=== PATIENT | female | born 1945 | race Caucasian/White ===

== ENCOUNTER 2017-08-11 22:47 | Inpatient (IN) | payer MEDICARE, MEDICAID ==
[~2017-08-11] VITALS: Ht 152.4 cm; Wt 69.1 kg
[~2017-08-11 22:47] MED LIST: ALEN70TA48 PO; ASPI-611 PO; BENZ-16 PO; DEXL60CA3 PO; DOCU-28 PO; LEVO25TA2 PO; LIDO700A5 TP; MULT1TAB74 PO; ONDA4TAB6 PO; PHEN51CR RC; POTA99TA6 PO; RANI300C PO; SENN-25 PO; THIO10TA PO; TRAM50TA2 PO
[2017-08-12] VITALS (13 sets, daily range): BP systolic 105–131; BP diastolic 40–75
[2017-08-12] MEDS ORDERED: fentaNYL/PF 50MCG/1 ML 2ML syringe IV ONE (00:50)
[2017-08-12 01:27] LABS: PARTIAL THROMBOPLASTIN TIME 26 SECONDS (22-32); PROTHROMBIN TIME 10.2 SECONDS (9.0-12.0)
[2017-08-12 01:32] LABS: BASOPHILS % (AUTO) 0.1 % (0-1); EOSINOPHILS # (AUTO) 0.1 X10'3 (0-0.9); EOSINOPHILS % (AUTO) 1.5 % (0-6); HEMOGLOBIN 13.5 g/dl (12.0-16.0); LYMPHOCYTES # (AUTO) 0.9 X10'3 (1.1-4.8); LYMPHOCYTES % (AUTO) 9.9 % (21-51); MEAN CORPUSCULAR HEMOGLOBIN 30.1 PG (27.0-31.0); MEAN CORPUSCULAR VOLUME 91.1 FL (78-98); MEAN PLATELET VOLUME 7.2 FL (7.4-10.4); MONOCYTES # (AUTO) 0.3 X10'3 (0-0.9); MONOCYTES % (AUTO) 3.1 % (2-12); NEUTROPHILS # (AUTO) 7.4 X10'3 (1.8-7.7); NEUTROPHILS % (AUTO) 85.4 % (42-75); PLATELET COUNT 155 X10'3 (140-440); RED BLOOD COUNT 4.49 X10'6 (4.20-5.60); RED CELL DISTRIBUTION WIDTH 12.3 % (11.5-14.5); WHITE BLOOD COUNT 8.8 X10'3 (4.5-11.0)
[2017-08-12 01:33] LABS: ALANINE AMINOTRANSFERASE 28 U/L (12-78); ALBUMIN 3.2 G/DL (3.4-5.0); ALBUMIN/GLOBULIN RATIO 0.9 (1.1-1.5); ALKALINE PHOSPHATASE 75 IU/L (46-116); ANION GAP 6 (8-16); ASPARTATE AMINO TRANSFERASE 18 U/L (10-37); BILIRUBIN,TOTAL 0.8 MG/DL (0.1-1.0); BLOOD UREA NITROGEN 11 MG/DL (7-18); BUN/CREATININE RATIO 14.7 (6.6-38.0); CALCIUM 9.5 MG/DL (8.5-10.1); CHLORIDE 105 MMOL/L (99-107); CREATININE 0.75 MG/DL (0.40-0.90); GLUCOSE 131 MG/DL (70-104); POTASSIUM 3.4 MMOL/L (3.5-5.1); SODIUM 141 MMOL/L (135-145); TOTAL CARBON DIOXIDE 29.8 MMOL/L (24-32); TOTAL PROTEIN 6.8 G/DL (6.4-8.2); eGFR 76 ML/MIN
[2017-08-12 01:57] LABS: COLOR,URINE Yellow (Yellow); GLUCOSE, URINE Negative (Neg); KETONES,URINE Negative (Neg); LEUKOCYTE ESTERASE ,URINE Negative (Neg); NITRITES, URINE Negative (Neg); OCCULT BLOOD,URINE Small (Neg); PROTEIN,URINE Negative (Neg); UROBILINOGEN,URINE 0.2 E.U/dL (0.2-1.0)
[2017-08-12] MEDS ORDERED: POTA8CAP9 PO (02:01)
[2017-08-12] MEDS ORDERED: ATOR10TA87 PO (02:01)
[2017-08-12] MEDS ORDERED: DOCU-28 PO (02:03)
[2017-08-12 02:19] LABS: CLARITY,URINE TURBID (Clear); UA COLLECTION TYPE FOLEY CATH
[2017-08-12 02:21] LABS: BACTERIA,URINE FEW /HPF (Neg); WBC,URINE NONE SEEN /HPF (0-4)
[2017-08-12 02:22] LABS: AMORPHOUS PHOSPHATES 3+; MUCUS STRANDS FEW /LPF (Neg); SQUAMOUS EPITHELIAL CELL,UR NONE SEEN /LPF (FEW); TRANSITIONAL EPI CELLS,URINE FEW /HPF
[2017-08-12] MEDS ORDERED: magnesium hydroxide 30ml (MOM) UD suspension PO PRN ×2 (05:00→21:45)
[2017-08-12] MEDS ORDERED: mag hydrox/Alum hydrox/simeth 30ml oral suspension PO PRN (05:00)
[2017-08-12] MEDS: normal saline 1000ml 1,000 ML IV SCH ×2 (06:02→23:29)
[2017-08-12] MEDS ORDERED: non-formulary drug (Dexlansoprazole (Dexilant) 1 CAP) PO SCH (08:00)
[2017-08-12] MEDS: potassium chloride 8mEq ER tablet PO SCH ×2 (08:10→23:28)
[2017-08-12] MEDS: levoTHYROXINE 25mcg tablet PO SCH (08:11)
[2017-08-12] MEDS: pantoprazole 40mg Tablet.DR PO SCH (08:11)
[2017-08-12] MEDS: atorvastatin 10mg tablet PO SCH (08:11)
[2017-08-12] MEDS ORDERED: MORPHINE 2MG in 2ml NS syringe IV PRN (09:20)
[2017-08-12] MEDS: morphine 4 MG/ML inj SYRINge IV PRN ×3 (09:42→21:58)
[2017-08-12] MEDS ORDERED: magnesium Cl slow-release 64mg tablet PO PRN (10:15)
[2017-08-12] MEDS ORDERED: magnesium 4gm in 100ml NS 100 ML IV PRN (10:15)
[2017-08-12] MEDS ORDERED: potassium Cl 40MEQ/NS 500ml 500 ML IV PRN ×2 (10:15)
[2017-08-12] MEDS ORDERED: potassium Cl 20 mEq SR tablet PO PRN (10:15)
[2017-08-12] MEDS ORDERED: magnesium/D5W IVPB 100 ML IV PRN (10:15)
[2017-08-12] MEDS: potassium Cl 20 mEq SR tablet PO PRN ×2 (12:01→17:09)
[2017-08-12] MEDS ORDERED: ceFAZolin 1GM/D5W- ADD-VANTAGE 50 ML IV ONE (13:00)
[2017-08-12] MEDS ORDERED: sevoflurane 250ml liquid IH ONE (20:22)
[2017-08-12] MEDS ORDERED: ePHEDrine 50MG/ML INJ. ONE (20:22)
[2017-08-12] MEDS ORDERED: fentaNYL /PF 50mcg/ml 5ml ampule ONE (20:27)
[2017-08-12] MEDS ORDERED: propofol inj 20 ML IV ONE (20:27)
[2017-08-12] MEDS ORDERED: ringers solution, lacted 1,000 ML IV SCH (21:26)
[2017-08-12] MEDS ORDERED: ondansetron/PF 4mg/2ml inj IV PRN (21:30)
[2017-08-12] MEDS ORDERED: meperidine/PF 25mg/ml syringe IV PRN ×3 (21:30)
[2017-08-12] MEDS ORDERED: morphine 4 MG/ML inj SYRINge IV PRN ×2 (21:30)
[2017-08-12] MEDS ORDERED: proCHLORperazine 10 MG/2 ml inj IV PRN (21:30)
[2017-08-12] MEDS ORDERED: acetaminophen 325mg tablet PO PRN (21:45)
[2017-08-12] MEDS ORDERED: diphenhydrAMINE 25mg capsule PO PRN ×2 (21:45)
[2017-08-12] MEDS ORDERED: bisacodyl 10mg suppository rectal RC PRN (21:45)
[2017-08-12] MEDS: ceFAZolin 1GM/D5W- ADD-VANTAGE 50 ML IV SCH (23:29)
[2017-08-13] VITALS (13 sets, daily range): BP systolic 88–124; BP diastolic 35–80
[2017-08-13] MEDS: morphine 4 MG/ML inj SYRINge IV PRN ×4 (01:47→16:53)
[2017-08-13 06:11] LABS: BASOPHILS % (AUTO) 0.1 % (0-1); EOSINOPHILS # (AUTO) 0.2 X10'3 (0-0.9); EOSINOPHILS % (AUTO) 2.5 % (0-6); HEMATOCRIT 33.9 % (35.0-45.0); HEMOGLOBIN 11.5 g/dl (12.0-16.0); LYMPHOCYTES # (AUTO) 0.9 X10'3 (1.1-4.8); LYMPHOCYTES % (AUTO) 12.8 % (21-51); MEAN CORPUSCULAR HEMOGLOBIN 30.5 PG (27.0-31.0); MEAN CORPUSCULAR VOLUME 89.9 FL (78-98); MEAN PLATELET VOLUME 6.9 FL (7.4-10.4); MONOCYTES # (AUTO) 0.3 X10'3 (0-0.9); MONOCYTES % (AUTO) 4.4 % (2-12); NEUTROPHILS # (AUTO) 5.5 X10'3 (1.8-7.7); NEUTROPHILS % (AUTO) 80.2 % (42-75); PLATELET COUNT 128 X10'3 (140-440); RED BLOOD COUNT 3.77 X10'6 (4.20-5.60); RED CELL DISTRIBUTION WIDTH 13.4 % (11.5-14.5); WHITE BLOOD COUNT 6.8 X10'3 (4.5-11.0)
[2017-08-13 06:30] LABS: ALANINE AMINOTRANSFERASE 26 U/L (12-78); ALBUMIN 2.5 G/DL (3.4-5.0); ALBUMIN/GLOBULIN RATIO 0.8 (1.1-1.5); ALKALINE PHOSPHATASE 58 IU/L (46-116); ANION GAP 8 (8-16); ASPARTATE AMINO TRANSFERASE 25 U/L (10-37); BILIRUBIN,TOTAL 0.6 MG/DL (0.1-1.0); BLOOD UREA NITROGEN 13 MG/DL (7-18); BUN/CREATININE RATIO 17.6 (6.6-38.0); CALCIUM 7.9 MG/DL (8.5-10.1); CHLORIDE 106 MMOL/L (99-107); CREATININE 0.74 MG/DL (0.40-0.90); GLUCOSE 97 MG/DL (70-104); MAGNESIUM 1.7 MG/DL (1.5-2.4); SODIUM 139 MMOL/L (135-145); TOTAL CARBON DIOXIDE 25.1 MMOL/L (24-32); TOTAL PROTEIN 5.7 G/DL (6.4-8.2); eGFR 77 ML/MIN
[2017-08-13 06:34] LABS: POTASSIUM 4.4 MMOL/L (3.5-5.1)
[2017-08-13] MEDS: enoxaparin 40mg/0.4ml syringe SQ SCH (08:51)
[2017-08-13] MEDS: levoTHYROXINE 25mcg tablet PO SCH (08:51)
[2017-08-13] MEDS: potassium chloride 8mEq ER tablet PO SCH ×2 (08:51→19:37)
[2017-08-13] MEDS: atorvastatin 10mg tablet PO SCH (08:51)
[2017-08-13] MEDS: pantoprazole 40mg Tablet.DR PO SCH (08:53)
[2017-08-13] MEDS: ceFAZolin 1GM/D5W- ADD-VANTAGE 50 ML IV SCH (08:53)
[2017-08-13] MEDS: normal saline 1000ml 1,000 ML IV SCH ×2 (13:00→19:02)
[2017-08-13] MEDS: HYDROcodone/acetaminophen 10/325mg tab PO PRN ×2 (13:31→19:38)
[2017-08-13] MEDS: sennosides 8.6mg tablet PO SCH (20:40)
[2017-08-13] MEDS ORDERED: furosemide 20 MG/2 ML vial IV ONE (21:05)
[2017-08-14 03:30] VITALS: BP 95/39
[2017-08-14 05:00] VITALS: BP 91/37
[2017-08-14] MEDS: HYDROcodone/acetaminophen 10/325mg tab PO PRN ×3 (05:30→18:22)
[2017-08-14 05:52] LABS: BASOPHILS % (AUTO) 0.2 % (0-1); EOSINOPHILS # (AUTO) 0.3 X10'3 (0-0.9); EOSINOPHILS % (AUTO) 4.4 % (0-6); HEMOGLOBIN 10.5 g/dl (12.0-16.0); LYMPHOCYTES # (AUTO) 0.8 X10'3 (1.1-4.8); LYMPHOCYTES % (AUTO) 11.6 % (21-51); MEAN CORPUSCULAR HEMOGLOBIN 30.7 PG (27.0-31.0); MEAN CORPUSCULAR VOLUME 90.5 FL (78-98); MEAN PLATELET VOLUME 6.7 FL (7.4-10.4); MONOCYTES # (AUTO) 0.3 X10'3 (0-0.9); MONOCYTES % (AUTO) 4.6 % (2-12); NEUTROPHILS # (AUTO) 5.5 X10'3 (1.8-7.7); NEUTROPHILS % (AUTO) 79.2 % (42-75); PLATELET COUNT 116 X10'3 (140-440); RED BLOOD COUNT 3.43 X10'6 (4.20-5.60); RED CELL DISTRIBUTION WIDTH 13.7 % (11.5-14.5)
[2017-08-14 06:10] LABS: ALANINE AMINOTRANSFERASE 24 U/L (12-78); ALBUMIN 2.3 G/DL (3.4-5.0); ALBUMIN/GLOBULIN RATIO 0.7 (1.1-1.5); ALKALINE PHOSPHATASE 56 IU/L (46-116); ANION GAP 5 (8-16); ASPARTATE AMINO TRANSFERASE 24 U/L (10-37); BILIRUBIN,TOTAL 0.6 MG/DL (0.1-1.0); BLOOD UREA NITROGEN 12 MG/DL (7-18); BUN/CREATININE RATIO 17.4 (6.6-38.0); CALCIUM 7.7 MG/DL (8.5-10.1); CHLORIDE 102 MMOL/L (99-107); CREATININE 0.69 MG/DL (0.40-0.90); GLUCOSE 97 MG/DL (70-104); MAGNESIUM 2.1 MG/DL (1.5-2.4); POTASSIUM 3.9 MMOL/L (3.5-5.1); SODIUM 136 MMOL/L (135-145); TOTAL CARBON DIOXIDE 29.1 MMOL/L (24-32); TOTAL PROTEIN 5.5 G/DL (6.4-8.2); eGFR 84 ML/MIN
[2017-08-14] MEDS: potassium chloride 8mEq ER tablet PO SCH ×2 (07:41→20:55)
[2017-08-14] MEDS: pantoprazole 40mg Tablet.DR PO SCH (07:41)
[2017-08-14] MEDS: atorvastatin 10mg tablet PO SCH (07:41)
[2017-08-14] MEDS: levoTHYROXINE 25mcg tablet PO SCH (07:42)
[2017-08-14] MEDS: enoxaparin 40mg/0.4ml syringe SQ SCH (07:42)
[2017-08-14 10:00] VITALS: BP 87/32
[2017-08-14] MEDS ORDERED: ondansetron/PF 4mg/2ml inj IV PRN (14:15)
[2017-08-14 15:00] VITALS: BP 92/34
[2017-08-14] MEDS: normal saline 1000ml 1,000 ML IV SCH (16:54)
[2017-08-14 18:00] VITALS: BP 107/44
[2017-08-14] MEDS: sennosides 8.6mg tablet PO SCH (20:55)
[2017-08-14 22:00] VITALS: BP 99/50
[2017-08-15] MEDS: normal saline 1000ml 1,000 ML IV SCH ×2 (02:54→12:54)
[2017-08-15 05:52] LABS: BASOPHILS % (AUTO) 0.2 % (0-1); EOSINOPHILS # (AUTO) 0.3 X10'3 (0-0.9); EOSINOPHILS % (AUTO) 4.1 % (0-6); HEMATOCRIT 30.7 % (35.0-45.0); HEMOGLOBIN 10.5 g/dl (12.0-16.0); LYMPHOCYTES # (AUTO) 0.8 X10'3 (1.1-4.8); LYMPHOCYTES % (AUTO) 12.5 % (21-51); MEAN CORPUSCULAR HEMOGLOBIN 30.6 PG (27.0-31.0); MEAN CORPUSCULAR HGB CONC 34.2 % (33.0-36.5); MEAN CORPUSCULAR VOLUME 89.7 FL (78-98); MEAN PLATELET VOLUME 6.7 FL (7.4-10.4); MONOCYTES # (AUTO) 0.3 X10'3 (0-0.9); MONOCYTES % (AUTO) 5.2 % (2-12); NEUTROPHILS # (AUTO) 4.9 X10'3 (1.8-7.7); PLATELET COUNT 136 X10'3 (140-440); RED BLOOD COUNT 3.43 X10'6 (4.20-5.60); RED CELL DISTRIBUTION WIDTH 13.3 % (11.5-14.5); WHITE BLOOD COUNT 6.3 X10'3 (4.5-11.0)
[2017-08-15 06:00] VITALS: BP 112/50
[2017-08-15 06:02] LABS: ALANINE AMINOTRANSFERASE 27 U/L (12-78); ALBUMIN 2.3 G/DL (3.4-5.0); ALBUMIN/GLOBULIN RATIO 0.7 (1.1-1.5); ALKALINE PHOSPHATASE 57 IU/L (46-116); ANION GAP 5 (8-16); ASPARTATE AMINO TRANSFERASE 23 U/L (10-37); BILIRUBIN,TOTAL 0.7 MG/DL (0.1-1.0); BLOOD UREA NITROGEN 15 MG/DL (7-18); BUN/CREATININE RATIO 22.7 (6.6-38.0); CALCIUM 7.9 MG/DL (8.5-10.1); CHLORIDE 102 MMOL/L (99-107); CREATININE 0.66 MG/DL (0.40-0.90); GLUCOSE 91 MG/DL (70-104); MAGNESIUM 2.1 MG/DL (1.5-2.4); SODIUM 135 MMOL/L (135-145); TOTAL CARBON DIOXIDE 28.5 MMOL/L (24-32); TOTAL PROTEIN 5.8 G/DL (6.4-8.2); eGFR 88 ML/MIN
[2017-08-15] MEDS: potassium chloride 8mEq ER tablet PO SCH ×2 (08:09→20:02)
[2017-08-15] MEDS: pantoprazole 40mg Tablet.DR PO SCH (08:09)
[2017-08-15] MEDS: levoTHYROXINE 25mcg tablet PO SCH (08:09)
[2017-08-15] MEDS: atorvastatin 10mg tablet PO SCH (08:09)
[2017-08-15] MEDS: acetaminophen 325mg tablet PO PRN ×2 (08:12→14:26)
[2017-08-15] MEDS: enoxaparin 40mg/0.4ml syringe SQ SCH (08:14)
[2017-08-15 10:00] VITALS: BP 99/44
[2017-08-15] MEDS: sennosides 8.6mg tablet PO SCH (20:03)
[2017-08-15 22:30] VITALS: BP 137/67
[2017-08-15] MEDS: HYDROcodone/acetaminophen 10/325mg tab PO PRN (23:38)
[2017-08-16 05:00] VITALS: BP 109/52
[2017-08-16 05:45] LABS: BASOPHILS % (AUTO) 0.3 % (0-1); EOSINOPHILS # (AUTO) 0.3 X10'3 (0-0.9); HEMATOCRIT 30.9 % (35.0-45.0); HEMOGLOBIN 10.5 g/dl (12.0-16.0); LYMPHOCYTES % (AUTO) 20.3 % (21-51); MEAN CORPUSCULAR HEMOGLOBIN 30.8 PG (27.0-31.0); MEAN CORPUSCULAR HGB CONC 33.9 % (33.0-36.5); MEAN CORPUSCULAR VOLUME 90.9 FL (78-98); MONOCYTES # (AUTO) 0.3 X10'3 (0-0.9); MONOCYTES % (AUTO) 5.8 % (2-12); NEUTROPHILS # (AUTO) 3.5 X10'3 (1.8-7.7); NEUTROPHILS % (AUTO) 68.6 % (42-75); PLATELET COUNT 167 X10'3 (140-440); RED CELL DISTRIBUTION WIDTH 13.4 % (11.5-14.5); WHITE BLOOD COUNT 5.1 X10'3 (4.5-11.0)
[2017-08-16 06:02] LABS: ALANINE AMINOTRANSFERASE 31 U/L (12-78); ALBUMIN 2.3 G/DL (3.4-5.0); ALBUMIN/GLOBULIN RATIO 0.6 (1.1-1.5); ALKALINE PHOSPHATASE 60 IU/L (46-116); ANION GAP 6 (8-16); ASPARTATE AMINO TRANSFERASE 30 U/L (10-37); BILIRUBIN,TOTAL 0.7 MG/DL (0.1-1.0); BLOOD UREA NITROGEN 14 MG/DL (7-18); BUN/CREATININE RATIO 21.2 (6.6-38.0); CALCIUM 8.2 MG/DL (8.5-10.1); CHLORIDE 104 MMOL/L (99-107); CREATININE 0.66 MG/DL (0.40-0.90); GLUCOSE 87 MG/DL (70-104); MAGNESIUM 1.9 MG/DL (1.5-2.4); POTASSIUM 3.8 MMOL/L (3.5-5.1); SODIUM 140 MMOL/L (135-145); TOTAL CARBON DIOXIDE 29.6 MMOL/L (24-32); TOTAL PROTEIN 5.9 G/DL (6.4-8.2); eGFR 88 ML/MIN
[2017-08-16] MEDS: atorvastatin 10mg tablet PO SCH (09:09)
[2017-08-16] MEDS: potassium chloride 8mEq ER tablet PO SCH (09:09)
[2017-08-16] MEDS: pantoprazole 40mg Tablet.DR PO SCH (09:09)
[2017-08-16] MEDS: levoTHYROXINE 25mcg tablet PO SCH (09:09)
[2017-08-16] MEDS: enoxaparin 40mg/0.4ml syringe SQ SCH (09:10)
[2017-08-16] MEDS: morphine 4 MG/ML inj SYRINge IV PRN (09:41)
[2017-08-16 10:00] VITALS: BP 101/32
[2017-08-16] MEDS ORDERED: lactulose 20gm/30ml cup PO ONE (10:20)
[2017-08-16] MEDS ORDERED: HYDR-3972 PO (12:59)
[2017-08-16] MEDS ORDERED: ASPI-974 PO (13:03)
== END 2017-08-16 16:30 | disposition home health service (06) | DRG 480 ==
LOC: ER 22:48 → ED HOLD 08-12 04:58 → ORTHO 4S 08-12 08:34 → PACU 08-12 19:30 → ORTHO 4S 08-12 23:04
PROVIDERS: ADMIT Emergency Medicine; ATTEND Internal Medicine
PROC: 0PSH04Z Reposition Right Radius with Internal Fixation Device, Open Approach (ICD-10-PCS; 2017-08-12)
PROC: 0QS634Z Reposition Right Upper Femur with Internal Fixation Device, Percutaneous Approach (ICD-10-PCS; principal; 2017-08-12 20:22)
DX: S52.551A Other extraarticular fracture of lower end of right radius, initial encounter for closed fracture (principal); S72.001A Fracture of unspecified part of neck of right femur, initial encounter for closed fracture; M81.0 Age-related osteoporosis without current pathological fracture; W18.2XXA Fall in (into) shower or empty bathtub, initial encounter; E03.9 Hypothyroidism, unspecified; K59.09 Other constipation; E78.5 Hyperlipidemia, unspecified; E66.9 Obesity, unspecified; F20.9 Schizophrenia, unspecified; H91.90 Unspecified hearing loss, unspecified ear; I10 Essential (primary) hypertension; I25.10 Atherosclerotic heart disease of native coronary artery without angina pectoris; I25.2 Old myocardial infarction; Z90.710 Acquired absence of both cervix and uterus; Z86.73 Personal history of transient ischemic attack (TIA), and cerebral infarction without residual deficits; Z82.49 Family history of ischemic heart disease and other diseases of the circulatory system; Y92.89 Other specified places as the place of occurrence of the external cause; Y93.E1 Activity, personal bathing and showering; Y99.8 Other external cause status; Z68.29 Body mass index [BMI] 29.0-29.9, adult
CPT/HCPCS: 36415; 70450; 71045; 73030; 73110; 73502; 76000; 80053; 81001; 83735; 84443; 84484; 85025; 85610; 85730; 86885; 86900; 86901; 87070; 93005; 93306; 96374; 97110; 97116; 97162; 97530; 99285; A4315; A6222; A6255; A6449; A7000; C1713; J0690; J0780; J1650; J1940; J2270; J2274; J2405; J2704; J3010; J3370; J7030; J7120

== ENCOUNTER 2018-08-06 16:51 | Emergency (ER) | payer MEDICARE, MEDICAID ==
[~2018-08-06] VITALS: Ht 152.4 cm; Wt 62.7 kg
[~2018-08-06 16:51] MED LIST changes: -ALEN70TA48 PO; -ASPI-611 PO; +ATOR10TA87 PO; -BENZ-16 PO; +HYDR-3972 PO; -LIDO700A5 TP; -MULT1TAB74 PO; -ONDA4TAB6 PO; -PHEN51CR RC; +POTA8CAP9 PO; -POTA99TA6 PO; -RANI300C PO; -SENN-25 PO; -THIO10TA PO; -TRAM50TA2 PO
[2018-08-06] MEDS ORDERED: HYDR-4353 PO (18:15)
--- NOTE | 2018-08-06 18:37 | NUR ---
CASANDRA Hagan reports pt is not on blood thinners. She remains bedside.
[2018-08-06] MEDS ORDERED: traMADol 50MG tablet PO ONE (19:05)
[2018-08-06 19:11] VITALS: BP 201/36
== END 2018-08-06 19:30 | disposition home or self-care (01) ==
LOC: ER 16:51
DX: S22.068A Other fracture of T7-T8 thoracic vertebra, initial encounter for closed fracture (principal); M81.0 Age-related osteoporosis without current pathological fracture; M54.5 Low back pain; I25.10 Atherosclerotic heart disease of native coronary artery without angina pectoris; I10 Essential (primary) hypertension; I25.2 Old myocardial infarction; Z79.899 Other long term (current) drug therapy; Z86.73 Personal history of transient ischemic attack (TIA), and cerebral infarction without residual deficits; Z98.890 Other specified postprocedural states; Z87.81 Personal history of (healed) traumatic fracture; W05.0XXA Fall from non-moving wheelchair, initial encounter; Y93.89 Activity, other specified; Y92.89 Other specified places as the place of occurrence of the external cause; Y99.8 Other external cause status
CPT/HCPCS: 72131; 99284

== ENCOUNTER 2021-05-10 04:51 | Emergency (ER) | payer MEDICARE, MEDICAID ==
[~2021-05-10] VITALS: Ht 149.9 cm; Wt 54.0 kg
[~2021-05-10 04:51] MED LIST changes: +POTA8CAP20 PO; -POTA8CAP9 PO
[2021-05-10] MEDS ORDERED: normal saline 1000ML IV soln IVB ONE ×2 (05:20→07:05)
[2021-05-10] MEDS ORDERED: ondansetron/PF 4mg/2ml inj IV ONE ×3 (05:20→08:25)
[2021-05-10] MEDS ORDERED: normal saline 1000ml 1,000 ML IV ONE (05:20)
[2021-05-10 05:57] LABS: CLARITY,URINE SLIGHTLY CLOUDY (Clear); GLUCOSE, URINE NEGATIVE (Neg); KETONES,URINE TRACE mg/dl (Neg); LEUKOCYTE ESTERASE ,URINE NEGATIVE (Neg); NITRITES, URINE NEGATIVE (Neg); OCCULT BLOOD,URINE NEGATIVE (Neg); PROTEIN,URINE TRACE mg/dl (Neg)
[2021-05-10 05:58] LABS: UA COLLECTION TYPE STRAIGHT CATH
[2021-05-10 05:58] LABS: BASOPHILS # (AUTO) 0.1 X10'3 (0-0.2); BASOPHILS % (AUTO) 0.6 % (0-1); EOSINOPHILS # (AUTO) 0.1 X10'3 (0-0.9); EOSINOPHILS % (AUTO) 0.6 % (0-6); HEMATOCRIT 45.6 % (35.0-45.0); HEMOGLOBIN 15.2 g/dl (12.0-16.0); LYMPHOCYTES # (AUTO) 0.7 X10'3 (1.1-4.8); LYMPHOCYTES % (AUTO) 5.3 % (21-51); MEAN CORPUSCULAR HEMOGLOBIN 29.8 PG (27.0-31.0); MEAN CORPUSCULAR HGB CONC 33.4 g/dL (33.0-36.5); MEAN CORPUSCULAR VOLUME 89.2 FL (78-98); MEAN PLATELET VOLUME 7.7 FL (7.4-10.4); MONOCYTES # (AUTO) 0.4 X10'3 (0-0.9); MONOCYTES % (AUTO) 3.3 % (2-12); NEUTROPHILS # (AUTO) 12.2 X10'3 (1.8-7.7); NEUTROPHILS % (AUTO) 90.2 % (42-75); PLATELET COUNT 193 X10'3 (140-440); RED BLOOD COUNT 5.11 X10'6 (4.20-5.60); RED CELL DISTRIBUTION WIDTH 13.6 % (11.5-14.5); WHITE BLOOD COUNT 13.5 X10'3 (4.5-11.0)
[2021-05-10 05:59] LABS: COLOR,URINE AMBER (Yellow)
[2021-05-10 06:03] LABS: APTT 25 SECONDS (22-32)
[2021-05-10 06:04] LABS: ALANINE AMINOTRANSFERASE 18 U/L (12-78); ALBUMIN 3.6 G/DL (3.4-5.0); ALBUMIN/GLOBULIN RATIO 0.9 (1.1-1.5); ALKALINE PHOSPHATASE 84 IU/L (46-116); ANION GAP 12 (8-16); ASPARTATE AMINO TRANSFERASE 20 U/L (10-37); BILIRUBIN,TOTAL 0.7 MG/DL (0.1-1.0); BLOOD UREA NITROGEN 21 MG/DL (7-18); BUN/CREATININE RATIO 22.1 (6.6-38.0); CALCIUM 9.1 MG/DL (8.5-10.1); CHLORIDE 107 MMOL/L (99-107); CREATININE 0.95 MG/DL (0.40-0.90); GLUCOSE 153 MG/DL (70-104); SODIUM 145 MMOL/L (135-145); TOTAL CARBON DIOXIDE 25.7 MMOL/L (24-32); TOTAL PROTEIN 7.4 G/DL (6.4-8.2); eGFR 57 ML/MIN
[2021-05-10 06:05] LABS: POTASSIUM 3.9 MMOL/L (3.5-5.1)
[2021-05-10 06:06] LABS: BACTERIA,URINE NONE SEEN /HPF (Neg); MUCUS STRANDS MANY /LPF (Neg); RBC,URINE 0-2 /HPF (0-2); SQUAMOUS EPITHELIAL CELL,UR FEW /LPF (FEW); WBC,URINE 0-4 /HPF (0-4)
[2021-05-10 06:07] LABS: LIPASE 78 U/L (73-393)
[2021-05-10 07:30] VITALS: BP 126/53
[2021-05-10 07:44] LABS: OCCULT BLOOD STOOL POSITIVE (Neg)
[2021-05-10] MEDS ORDERED: ONDA8TAB13 PO (08:25)
== END 2021-05-10 10:31 | disposition home or self-care (01) ==
LOC: ER 04:51
DX: K52.9 Noninfective gastroenteritis and colitis, unspecified (principal); R11.10 Vomiting, unspecified; I25.10 Atherosclerotic heart disease of native coronary artery without angina pectoris; I10 Essential (primary) hypertension; I25.2 Old myocardial infarction; F20.9 Schizophrenia, unspecified; Z86.73 Personal history of transient ischemic attack (TIA), and cerebral infarction without residual deficits; Z98.890 Other specified postprocedural states; Z79.899 Other long term (current) drug therapy
CPT/HCPCS: 36415; 71045; 74176; 80053; 81001; 82272; 83690; 83735; 84145; 84484; 85025; 85610; 85730; 86885; 86900; 86901; 93005; 96361; 96374; 96376; 99285; J2405; J7030